=== PATIENT | female | born 1975 | race Caucasian/White ===

== ENCOUNTER 2023-01-18 11:30 | Outpatient (CLI) | payer OTHER, SELFPAY ==
--- NOTE | 2023-01-18 11:30 | CRLHL7_ITS ---
For Patients: As a result of the Cures Act, medical imaging exams and procedure reports are released immediately into your electronic medical record. You may view this report before your referring provider. If you have questions, please contact your health care provider. BILATERAL SCREENING MAMMOGRAM WITH COMPUTER-AIDED DETECTION AND TOMOSYNTHESIS TECHNIQUE: CC and MLO views were obtained. These mammographic images have been obtained using full-field digital technique. These mammographic images were interpreted with the benefit of computer-aided detection. Breast tomosynthesis was used in this interpretation. COMPARISON FILM: 05/11/21, 02/25/19, 04/28/16. FINDINGS: There are scattered areas of fibroglandular density. IMPRESSION: There is no radiographic evidence for malignancy. ASSESSMENT: BI-RADS Category 1: Negative RECOMMENDATION: Routine screening mammogram in 1 year. A lay language report of this examination will be provided to the patient. ANSON FREEMAN M.D. Diagnostic/Nuclear Medicine Radiologist [email or web address] SEA:[email or web address] Transcribed: 01/19/2023, 3:[address]/Dictated by: Anson Freeman MD @ 01/19/2023 10:13:00 AM (Electronically Signed)
== END 2023-01-18 11:31 | disposition home or self-care (01) ==
LOC: MAMMO 11:32
PROVIDERS: Visit Provider Registered Nurse
DX: Z12.31 Encounter for screening mammogram for malignant neoplasm of breast (principal)
CPT/HCPCS: 77063; 77067

== ENCOUNTER 2024-01-25 13:26 | Outpatient (CLI) | payer OTHER, SELFPAY | END 2024-01-25 13:27 | disposition home or self-care (01) | LOC: NFLDREF 13:26 | PROVIDERS: Visit Provider Obstetrics & Gynecology | DX: R39.15 Urgency of urination (principal); R33.9 Retention of urine, unspecified | CPT/HCPCS: 87086 ==

== ENCOUNTER 2024-06-28 09:39 | Outpatient (CLI) | payer OTHER, SELFPAY ==
--- NOTE | 2024-06-28 09:45 | CRLHL7_ITS ---
For Patients: As a result of the Century Cures Act, medical imaging exams and procedure reports are released immediately into your electronic medical record. You may view this report before your referring provider. If you have questions, please contact your health care provider. BILATERAL DIGITAL SCREENING MAMMOGRAM WITH COMPUTER-AIDED DETECTION AND TOMOSYNTHESIS CLINICAL HISTORY: Routine screening exam. COMPARISON: 01/18/2023, 05/11/2021, 02/25/2019 TECHNIQUE: Digital mammogram in CC and MLO projections including computer-aided detection (CAD). Tomosynthesis was used in this interpretation. BREAST COMPOSITION: The breasts are heterogeneously dense, which may obscure small masses. FINDINGS: RIGHT Breast: Focal asymmetric density upper outer quadrant 5 cm from the nipple. LEFT Breast: No suspicious findings. IMPRESSION: RIGHT breast asymmetry/mass. RECOMMENDATIONS: Additional mammographic views of the RIGHT breast including 3D spot compression CC/MLO. RIGHT breast ultrasound may also be required. The [facility] will contact the patient. A lay language report of this examination will be provided to the patient. BI-RADS Category 0: Incomplete: Need Additional Imaging Evaluation Dictated by Parag Madsen MD @ 06/28/2024 10:21:58 AM Dictated by: Parag Madsen MD @ 06/28/2024 10:22:02 (Electronically Signed)
== END 2024-06-28 09:40 | disposition home or self-care (01) ==
LOC: MAMMO 09:40
PROVIDERS: Visit Provider Obstetrics & Gynecology
DX: Z12.31 Encounter for screening mammogram for malignant neoplasm of breast (principal); R92.333 Mammographic heterogeneous density, bilateral breasts; N63.10 Unspecified lump in the right breast, unspecified quadrant
CPT/HCPCS: 77063; 77067

== ENCOUNTER 2024-07-10 08:33 | Outpatient (CLI) | payer OTHER, SELFPAY ==
--- NOTE | 2024-07-10 08:45 | CRLHL7_ITS ---
For Patients: As a result of the Cures Act, medical imaging exams and procedure reports are released immediately into your electronic medical record. You may view this report before your referring provider. If you have questions, please contact your health care provider. DIGITAL DIAGNOSTIC RIGHT MAMMOGRAM PERFORMED USING TOMOSYNTHESIS AND COMPUTER-AIDED DETECTION RIGHT BREAST ULTRASOUND CLINICAL HISTORY: RIGHT breast mass/asymmetry. COMPARISON: 06/28/2024, 01/18/2023, 05/11/2021. TECHNIQUE: Digital RIGHT mammogram in two projections. Tomosynthesis and CAD were used in this interpretation. Real-time ultrasound imaging of RIGHT breast with imaging documentation. Scanning was performed by both the technologist and the radiologist. BREAST COMPOSITION: There are scattered areas of fibroglandular density. FINDINGS: 3D spot compression CC/MLO RIGHT breast mammogram images submitted. Decreased conspicuity of previously noted asymmetric density. No architectural distortion. No suspicious calcifications. No adenopathy. Targeted RIGHT breast ultrasound performed 11-1 o`clock 5 cm from the nipple. Normal fibroglandular tissue is present. No fibrocystic change or mass. IMPRESSION: No suspicious findings. No evidence of malignancy. RECOMMENDATIONS: Routine screening mammography. A lay language report of this examination will be provided to the patient. BI-RADS Category 2: Benign Dictated by Parag Madsen MD @ 07/10/2024 9:34:09 AM jj/Dictated by: Parag Madsen MD @ 07/10/2024 9:34:00 AM (Electronically Signed)
--- NOTE | 2024-07-10 09:15 | CRLHL7_ITS ---
For Patients: As a result of the Cures Act, medical imaging exams and procedure reports are released immediately into your electronic medical record. You may view this report before your referring provider. If you have questions, please contact your health care provider. SEE DIGITAL DIAGNOSTIC RIGHT MAMMOGRAM PERFORMED SAME DAY CRL:[email or web address]/Dictated by: Parag Madsen MD @ 07/10/2024 9:34:00 AM (Electronically Signed)
== END 2024-07-10 08:34 | disposition home or self-care (01) ==
LOC: MAMMO 08:33
PROVIDERS: Visit Provider Obstetrics & Gynecology
DX: N63.10 Unspecified lump in the right breast, unspecified quadrant (principal); R92.8 Other abnormal and inconclusive findings on diagnostic imaging of breast
CPT/HCPCS: 76642; 77065; 80061; G0279